=== PATIENT | male | born 1950 | race Caucasian/White ===

== ENCOUNTER → 2017-05-08 13:53 | Outpatient (CLI) | payer MEDICARE | END | disposition home or self-care (01) | LOC: D.RAD 13:53 | DX: K59.00 Constipation, unspecified (principal) ==

== ENCOUNTER 2017-05-11 15:21 | Emergency (ER) | payer MEDICARE | END 2017-05-11 21:48 | disposition home or self-care (01) | LOC: D.ER 15:21 | DX: K59.00 Constipation, unspecified (principal); G80.9 Cerebral palsy, unspecified ==

== ENCOUNTER 2019-11-15 10:51 | Day surgery (SDC) | payer MEDICARE, OTHER ==
[~2019-11-15] VITALS: Ht 172.7 cm; Wt 125.9 kg
[~2019-11-15 10:51] MED LIST: BENTYL 20 MG TA20 MG PO; CENTRUM MEN'S1 EACH PO; CRESTOR10 MG PO; DEPAKOTE500 MG PO; LAMICTAL100 MG PO; LOSARTAN-HCTZ1 EAC1 PO; MECLIZINE HCL25 MG PO; OXYBUTYNIN CHLOR5 MG PO; PROTONIX40 MG PO; PROZAC40 MG PO; RENACIDIN PO; STERILE WATER PO; SYNTHROID150 MCG PO; VITAMIN C500 M1 PO; VOLTAREN75 MG PO
[2019-11-15 12:03] LABS: ANION GAP 10.6 mmol/L (8-16); CALCIUM 9.3 mg/dL (8.5-10.1); CARBON DIOXIDE 30.6 mmol/L (21.0-32.0); CREATININE - SERUM 1.1 mg/dL (0.6-1.3); POTASSIUM - SERUM 4.2 mmol/L (3.5-5.1)
[2019-11-15 12:09] VITALS: BP 139/83; Ht 172.7 cm; Wt 125.9 kg
--- NOTE | 2019-11-15 14:15 | NUR ---
ASSISTED PATIENT TO WALK TO BATHROOM, PATIENT VOIDS AND HAS LARGE FORMED BOWEL MOVEMENT IN TOILET. RIGHT AC PIV DC'D WITH TIP INTACT. THIS NURSE ASSISTS PATIENT TO DRESS IN PERSONAL CLOTHING
--- NOTE | 2019-11-18 07:06 | OP ---
PATIENT NAME: CHERELLE DE LUNA MEDICAL RECORD: [id number] :52 LOCATION:[facility] ADMISSION DATE: SURGEON: DENNYS CLARK DO DATE OF OPERATION: 11/15/2019 PROCEDURE: EGD with balloon dilation and biopsies. INDICATION FOR PROCEDURE: Dysphagia and heartburn. SCOPE: Olympus video gastroscope. MEDICATIONS: Propofol 250 mg IV per anesthesia. ESTIMATED BLOOD LOSS: Minimal. COMPLICATIONS: None. FINDINGS: Informed consent was given. The patient was made comfortable with the above medication. After reaching an adequate level of sedation by slow IV push, the patient was placed on his left side. The endoscope was advanced under direct visualization through the mouth to the second portion of the duodenum with ease. The esophagus appeared normal throughout the upper, middle, and lower thirds. At the GE junction, there was evidence of LA class A reflux-induced esophagitis and a Schatzki ring. The cold forceps biopsies were taken from the midesophagus to rule out the presence of eosinophils. Cold forceps biopsies were taken of the squamocolumnar junction to rule out the presence of Bhatti's mucosa. The Schatzki ring was dilated to 20 mm maximum diameter with a [id number]-[id number]-[id number] CRE dilating balloon under direct visualization successfully. The endoscope was advanced beyond the GE junction into the stomach and retroflexed to view the cardia, where a small sliding hiatal hernia was present. Throughout the stomach, there was some congestion and erythema consistent with mild chronic gastritis. Cold forceps biopsies were taken from the antrum and incisura to submit for histopathology and to rule out the presence of H. pylori. The endoscope was advanced beyond the pylorus into the duodenum which appeared normal to the second portion. Cold forceps biopsies were taken to submit for histopathology. The endoscope was withdrawn from the patient. The patient tolerated the procedure well and there were no complications. IMPRESSION: 1. LA class A reflux-induced esophagitis. 2. Nonobstructing Schatzki ring, status post dilation to 20 mm maximum diameter. 3. Small sliding hiatal hernia. 4. Mild chronic gastritis changes. PLAN AND RECOMMENDATIONS: 1. Discharge home when recovery parameters are met. 2. Follow up biopsy specimen results. 3. GERD diet and reflux precautions. 4. Continue current medications. 5. Okay to add Pepcid 40 mg at bedtime for breakthrough symptoms of heartburn and reflux. 6. Notify the GI clinic if symptoms of dysphagia do not improve or worsen. 7. Follow up in GI clinic as needed. OPERATIVE REPORT [id number] CHERELLE DE LUNA 8. If dysphagia persists, consider esophageal manometry study. NTS:[id number] Voice Confirmation ID: [id number] DOCUMENT ID: [id number] DENNYS CLARK DO at 0706 CC: [id number] DICTATION DATE: 11/15/19 1336 OPERATIONS EXECUTIVE: 11/15/19 2251 [facility] [place] 11/15/19 [facility] [address] [place] [address]
== END 2019-11-15 14:35 | disposition home or self-care (01) ==
LOC: D.OPS 10:51
PROVIDERS: Anesthesiology; ATTEND Internal Medicine Gastroenterology
DX: R13.10 Dysphagia, unspecified (principal); R12 Heartburn; K21.0 Gastro-esophageal reflux disease with esophagitis; K22.2 Esophageal obstruction